=== PATIENT | female | born 1980 | race Caucasian/White ===

== ENCOUNTER 2018-02-07 13:38 | Emergency (ER) | payer MEDICAID ==
[2018-02-07 14:13] VITALS: RESP 18; TEMP 97.8; O2SAT 100; BMI 38.0
[2018-02-07] MEDS ORDERED: Sodium Chloride 0.9% 1,000 ML IV STA (14:23)
[2018-02-07] MEDS ORDERED: MethylPREDNISolone 40 mg Vial IVP STA (14:24)
[2018-02-07] MEDS ORDERED: DiphenhydrAMINE 50 mg/ml Inj IVP STA (14:24)
--- NOTE | 2018-02-07 14:34 | ED PDOC ---
Arrival/HPI - General Chief Complaint: Abnormal Skin Integrity Time Seen by Provider: 02/07/18 14:17 Historian: Patient - History of Present Illness Narrative History of Present Illness (Text): 02/07/18 14:23 38 year old female with no past medical history, who presents to the Emergency Department complaining of an ongoing allergic reaction for the last 12 days. Per patient's rash started underneath her breasts bilaterally and spread to both her upper extremities. Patient saw her PMD who prescribed Benadryl, Mometasone, and Cetirizine, which hasn't been helpful per patient. She reports going to a park about 10 days ago with her daughter, but denies any potential contact with allergens, plants, or insect bites. Denies any use of creams, perfumes, or emollient. Patient states she is 4 months and has tried calamine lotion with no alleviation. Patient was instructed to present to the Emergency Department by her PMD. Patient denies fevers, chills, cough, shortness of breath, chest pain, dyspnea on exertion, abdominal pain, nausea, vomiting, diarrhea, neck/back pain, urinary/bowel changes, headache, dizziness, or any other complaint. Patent denies shortness of breath, facial swelling, headache, dizziness, or any other complaints. PMD:Dr.Veronica Rivera Time/Duration: > week Symptom Onset: Gradual Symptom Course: Unchanged Context: Home Past Medical History - Provider Review Nursing Documentation Reviewed: Yes Family/Social History - Physician Review Nursing Documentation Reviewed: Yes Family/Social History: No Known Family HX Allergies/Home Meds Allergies/Adverse Reactions: Allergies No Known Allergies Allergy (Verified 02/07/18 14:05) Home Medications: Home Meds Medication Instructions Recorded Confirmed Labetalol [Trandate] 100 mg PO BID 02/07/18 02/07/18 Pnv No.95/Ferrous Fum/Folic AC 1 tab PO DAILY 02/07/18 02/07/18 [Prenavite] Review of Systems - Physician Review All systems were reviewed & negative as marked: Yes - Review of Systems Respiratory: absent: SOB Skin: Rash Neurological: absent: Headache, Dizziness Physical Exam Vital Signs Reviewed: Yes Vital Signs Temp Pulse Resp BP Pulse Ox 02/07/18 14:05 97.8 F 95 H 18 114/61 100 Temperature: Afebrile Blood Pressure: Normal Pulse: Regular Respiratory Rate: Normal Appearance: Positive for: Well-Appearing Mental Status: Positive for: Alert and Oriented X 3 - Systems Exam Head: Present: Atraumatic, Normocephalic Pupils: Present: PERRL Extroacular Muscles: Present: EOMI Conjunctiva: Present: Normal Mouth: Present: Moist Mucous Membranes Pharnyx: No: Soft Palate/Uvular Edema Neck: Present: Normal Range of Motion Respiratory/Chest: Present: Clear to Auscultation, Good Air Exchange. No: Respiratory Distress, Accessory Muscle Use Cardiovascular: Present: Regular Rate and Rhythm, Normal S1, S2. No: Murmurs Abdomen: Present: Other (Gravid). No: Tenderness, Distention, Peritoneal Signs Back: Present: Normal Inspection Upper Extremity: Present: Normal Inspection. No: Cyanosis, Edema Lower Extremity: Present: Normal Inspection. No: Edema Neurological: Present: GCS=15, CN II-XII Intact, Speech Normal Skin: Present: Warm, Dry, Rashes (multiple blanching urticarial rash noted on bilateral upper extremities and lower extremities, and trunk. No rash on face.) Psychiatric: Present: Alert, Oriented x 3, Normal Insight, Normal Concentration Medical Decision Making ED Course and Treatment: 02/07/18 14:23 Impression: 38 year old female complaining of ongoing allergic reaction and rash for the last 12 days Differential Diagnosis included but are not limited to: Allergic reaction Anaphylaxis Plan: -- Bendaryl -- Pepcid -- Solu-Medrol -- IV fluids -- Reassess and disposition Progress Notes: 02/07/18 15:44 UA shows negative esterases and nitrites with many bacteria consistent with contaminated specimen. Will defer to PRINCIPAL EXAMINER. Patient notified of findings and will follow up with her OB(Dr. Randy Weber). 02/07/18 16:06 On reevaluation patient states her pruritic rash has improved, and states that she has scheduled an appointment for tomorrow. She is encouraged to continue surveillance of her rash and conservative management. Scripts provided. She is stable for discharge. - Medication Orders Current Medication Orders: Sodium Chloride (Sodium Chloride 0.9%) 1,000 mls @ 999 mls/hr IV .Q1H1M STA Stop: 02/07/18 15:23 Discontinued Medications Diphenhydramine HCl (Benadryl) 25 mg IVP STAT STA Stop: 02/07/18 14:25 Famotidine (Pepcid) 20 mg IVP STAT STA Stop: 02/07/18 14:25 Methylprednisolone (Solu-Medrol) 40 mg IVP STAT STA Stop: 02/07/18 14:25 - Scribe Statement The provider has reviewed the documentation as recorded by the Scribe Isak Lee Provider Scribe Attestation: All medical record entries made by the Scribe were at my direction and personally dictated by me. I have reviewed the chart and agree that the record accurately reflects my personal performance of the history, physical exam, medical decision making, and the department course for this patient. I have also personally directed, reviewed, and agree with the discharge instructions and disposition. Disposition/Present on Arrival - Present on Arrival Any Indicators Present on Arrival: No History of DVT/PE: No History of Uncontrolled Diabetes: No Urinary Catheter: No History of Decub. Ulcer: No History Surgical Site Infection Following: None - Disposition Have Diagnosis and Disposition been Completed?: Yes Diagnosis: Allergic reaction Disposition: HOME/ ROUTINE Disposition Time: 16:15 Patient Plan: Discharge Condition: IMPROVED Discharge Instructions (ExitCare): Anaphylaxis (DC), Skin Rash (DC), Allergy Skin Testing Print Language: ARMENIAN Additional Instructions: PLEASE STOP TAKING CURRENT MEDICATIONS AND START TAKING MEDICATIONS PROVIDED TO YOU IN EMERGENCY ROOM PLEASE FOLLOW UP WITH PRINCIPAL EXAMINER TO CHECK URINE FOR BACTERIA Prescriptions: Famotidine [Pepcid] 40 mg PO DAILY 5 Days #5 tab Methylprednisolone [Medrol Dose Pack (21 tabs)] 4 mg PO DAILY #21 mg Referrals: Randy Weber MD [Medical Doctor] - Follow up with primary Forms: [employer] (Kinyarwanda)
[2018-02-07 14:55] LABS: URINE BILIRUBIN NEGATIVE (NEGATIVE); URINE BLOOD NEGATIVE (NEGATIVE); URINE GLUCOSE (UA) NEGATIVE (NEGATIVE); URINE LEUKOCYTE ESTERASE NEGATIVE Leu/uL (NEGATIVE); URINE PROTEIN 30 mg/dL (<30 mg/dL); URINE UROBILINOGEN 0.2 E.U./dL (<1 E.U./dL)
[2018-02-07 14:59] LABS: URINE APPEARANCE CLEAR (CLEAR); URINE COLOR YELLOW (YELLOW)
[2018-02-07 15:02] LABS: URINE AMORPHOUS SEDIMENT FEW; URINE BACTERIA MANY (NEG); URINE RBC 0 - 2 /hpf (0-2); URINE WBC 0 - 2 /hpf (0-6)
[2018-02-07 17:32] VITALS: BP 113/61; PULSE 81
== END 2018-02-07 17:48 | disposition home or self-care (01) ==
LOC: ED 13:38
DX: T78.49XA Other allergy, initial encounter (principal); X58.XXXA Exposure to other specified factors, initial encounter
CPT/HCPCS: 81001; 96374; 96375; 99284; J1200; J2920; J7030

== ENCOUNTER 2018-02-15 09:54 | Emergency (ER) | payer MEDICAID ==
[2018-02-15 09:55] VITALS: BMI 38.0
[2018-02-15 10:18] VITALS: BP 129/83; PULSE 89; RESP 17; TEMP 97.9; O2SAT 100
--- NOTE | 2018-02-15 11:08 | ED PDOC ---
Arrival/HPI - General Chief Complaint: Abnormal Skin Integrity Time Seen by Provider: 02/15/18 10:16 Historian: Patient - History of Present Illness Narrative History of Present Illness (Text): 02/15/18 10:43 38yo female with pmhx of hypertension, states she is currently almost 20weeks and in ED for pruritic rash. States she was seen here on 02/07/18 and followed up a Plan Consultant who referred her to her OB. States she finished the prednisone and pepcid that was given here in the ED. Denies any inciting factors. Denies SOB, chest pain, tongue swelling, any other complaint. Past Medical History - Provider Review Nursing Documentation Reviewed: Yes - Psychiatric Hx Substance Use: No - Anesthesia Hx Anesthesia: No Hx Anesthesia Reactions: No Hx Malignant Hyperthermia: No Family/Social History - Physician Review Nursing Documentation Reviewed: Yes Family/Social History: Unknown Family HX Smoking Status: Never Smoked Hx Alcohol Use: No Hx Substance Use: No Allergies/Home Meds Allergies/Adverse Reactions: Allergies No Known Allergies Allergy (Verified 02/07/18 14:05) Home Medications: Home Meds Medication Instructions Recorded Confirmed Labetalol [Trandate] 100 mg PO BID 02/07/18 02/07/18 Pnv No.95/Ferrous Fum/Folic AC 1 tab PO DAILY 02/07/18 02/07/18 [Prenavite] Review of Systems - Physician Review All systems were reviewed & negative as marked: Yes - Review of Systems Constitutional: Normal Eyes: Normal ENT: Normal Respiratory: Normal Cardiovascular: Normal Gastrointestinal: Normal Genitourinary Female: Normal Musculoskeletal: Normal Skin: Rash, Pruritis Neurological: Normal Endocrine: Normal Hemo/Lymphatic: Normal Psychiatric: Normal Physical Exam Vital Signs Reviewed: Yes Vital Signs Temp Pulse Resp BP Pulse Ox 02/15/18 10:18 97.9 F 89 17 129/83 100 Temperature: Afebrile Blood Pressure: Normal Pulse: Regular Respiratory Rate: Normal Appearance: Positive for: Well-Appearing, Non-Toxic, Comfortable Pain Distress: None Mental Status: Positive for: Alert and Oriented X 3 - Systems Exam Head: Present: Atraumatic, Normocephalic Pupils: Present: PERRL Extroacular Muscles: Present: EOMI Conjunctiva: Present: Normal Mouth: Present: Moist Mucous Membranes Neck: Present: Normal Range of Motion Respiratory/Chest: Present: Clear to Auscultation, Good Air Exchange. No: Respiratory Distress, Accessory Muscle Use Cardiovascular: Present: Regular Rate and Rhythm, Normal S1, S2. No: Murmurs Abdomen: No: Tenderness, Distention, Peritoneal Signs Back: Present: Normal Inspection Upper Extremity: Present: Normal Inspection. No: Cyanosis, Edema Lower Extremity: Present: Normal Inspection. No: Edema Neurological: Present: GCS=15, CN II-XII Intact, Speech Normal Skin: Present: Warm, Dry, Rashes (Papular rashes and excoriations noted to b/l arms, legs and neck), Normal Color Psychiatric: Present: Alert, Oriented x 3, Normal Insight, Normal Concentration Medical Decision Making ED Course and Treatment: 02/15/18 19:28 PT in ED for stated history. She was not in any distress. She recently finished a rx of Prednisone. She is currently almost 20weeks . she was not given prednisone at this time secondary to the side effect of steroids. She was treated with Pepcid and DC home with Pepcid. she was strongly advised to f/u with her OB and a Plan Consultant for further evaluation and treatment. - Medication Orders Current Medication Orders: Famotidine (Pepcid) 20 mg PO STAT STA Stop: 02/15/18 10:42 Disposition/Present on Arrival - Present on Arrival Any Indicators Present on Arrival: No History of DVT/PE: No History of Uncontrolled Diabetes: No Urinary Catheter: No History of Decub. Ulcer: No History Surgical Site Infection Following: None - Disposition Have Diagnosis and Disposition been Completed?: Yes Diagnosis: Rash Disposition: HOME/ ROUTINE Disposition Time: 11:10 Patient Plan: Discharge Condition: STABLE Discharge Instructions (ExitCare): Skin Rash Additional Instructions: Follow up with your OB/Plan Consultant Return to ED for any new symptoms Prescriptions: Famotidine [Pepcid] 20 mg PO DAILY #6 tab Referrals: Fred Rudolph MD [Staff Provider] - Follow up with primary Forms: [employer] (Tanzanian)
== END 2018-02-15 11:46 | disposition home or self-care (01) ==
LOC: ED 09:54
DX: O26.892 Other specified pregnancy related conditions, second trimester (principal); R21 Rash and other nonspecific skin eruption; Z3A.20 20 weeks gestation of pregnancy